=== PATIENT | male | born 1950 | race Caucasian/White ===

== ENCOUNTER 2018-04-05 11:57 | Observation (INO) | payer OTHER ==
[~2018-04-05] VITALS: Ht 182.9 cm; Wt 112.6 kg
[2018-04-05 12:32] LABS: HEMOGLOBIN 16.1 G/DL (12.5-16.6); MCH 34.8 PG (29.0-34.0); MCHC 35.8 G/DL (30.0-36.0); MCV 97.2 FL (86-99); PLATELET COUNT 196 K/uL (156-360); RBC DIS.WIDTH-CV 11.9 % (11.8-14.6); RBC DIS.WIDTH-SD 42.6 % (39-53); RED BLOOD COUNT 4.63 M/uL (4.00-5.50); WHITE BLOOD COUNT 9.5 K/uL (4.1-10.2)
[2018-04-05 12:42] LABS: CHLORIDE 105 mEq/L (99-109); SODIUM 140 mEq/L (136-147)
[2018-04-05 12:44] LABS: GLUCOSE 155 mg/dL (70-99)
[2018-04-05 12:48] LABS: CREATININE 1.2 mg/dL (0.6-1.3); GFR ESTIMATE (CALCULATED) > 59 mL/min/ (58.99-99999)
[2018-04-05 12:49] LABS: UREA NITROGEN (BUN) 38 mg/dL (9-23)
[2018-04-05 12:54] LABS: TROP-I INTERPRETATION NEGATIVE; TROPONIN-I < 0.01 ng/mL (0.0-0.30)
[2018-04-05] MEDS ORDERED: MOBIC15 MG PO (15:09)
[2018-04-05] MEDS ORDERED: ASCORBIC ACID100 MG PO (15:09)
[2018-04-05 16:45] LABS: TROP-I INTERPRETATION NEGATIVE; TROPONIN-I < 0.01 ng/mL (0.0-0.30)
[2018-04-05 16:50] VITALS: BP 112/62
[2018-04-05 19:00] VITALS: BP 129/78
[2018-04-05 23:49] LABS: TROP-I INTERPRETATION NEGATIVE; TROPONIN-I < 0.01 ng/mL (0.0-0.30)
[2018-04-06 00:32] VITALS: BP 105/57
[2018-04-06 04:24] VITALS: BP 113/57
[2018-04-06 04:27] LABS: TROP-I INTERPRETATION NEGATIVE; TROPONIN-I < 0.01 ng/mL (0.0-0.30)
[2018-04-06 08:31] VITALS: BP 116/66
[2018-04-06] MEDS ORDERED: NITROSTAT0.4 MG SL (10:36)
[2018-04-06] MEDS ORDERED: ASPIR-LOW81 MG PO (10:36)
[2018-04-06 11:48] VITALS: BP 110/57
== END 2018-04-06 12:27 | disposition home or self-care (01) ==
LOC: EME 11:57 → EDOF 13:30 → ENRESERV 13:31 → 4SOUTH 16:25
PROVIDERS: Emergency Medicine; Hospitalist
DX: R07.9 Chest pain, unspecified (principal); I25.10 Atherosclerotic heart disease of native coronary artery without angina pectoris; E78.5 Hyperlipidemia, unspecified; R94.31 Abnormal electrocardiogram [ECG] [EKG]; F17.220 Nicotine dependence, chewing tobacco, uncomplicated; Z82.49 Family history of ischemic heart disease and other diseases of the circulatory system
CPT/HCPCS: 71045; 80048; 84484; 85027; 93005; 94760; 99281; 99285; G0378; J1650; J7030